=== PATIENT | male | born 1960 | race Caucasian/White ===

== ENCOUNTER 2017-07-10 10:37 | Day surgery (SDC) | payer OTHER ==
[~2017-07-10 10:37] MED LIST: RINGER'S SOLUTION,LACTATED 1,000 ML IV PRN
[2017-07-10] MEDS ORDERED: RINGER'S SOLUTION,LACTATED 1,000 ML IV ONE (11:11)
[2017-07-10] MEDS ORDERED: RINGER'S SOLUTION,LACTATED 1,000 ML IV PRN (12:20)
--- NOTE | 2017-07-10 15:56 | OR ---
Operative Report - Dictated Report Narrative: OPERATIVE REPORT DATE OF OPERATION: 07/10/2017 PREOPERATIVE DIAGNOSIS: Anal skin tag. No prior dedicated colon studies. POSTOPERATIVE DIAGNOSIS: Anal skin tag. Sharp angulation of the colon at 80 cm preventing proximal direct exam. OPERATION: Colonoscopy to 80 cm. Cauterization of anal skin tag SURGEON: Carole Mccauley MD ANESTHESIA: RAJWINDER Huang CRNA INDICATIONS FOR PROCEDURE: The patient is a 56-year-old male referred by Dr. Ortiz. He has had no previous dedicated colon studies. There is no family history of colon cancer. He is asymptomatic. He does have an irritated perianal skin tag. FINDINGS: 2 mm benign appearing perianal skin tag. Sharp angulation of the colon at 80 cm precluding direct proximal exam. NARRATIVE OF PROCEDURE: The patient was identified in the holding area, and prior to the administration of anesthetic, a multidisciplinary timeout was observed. With the patient in the left lateral position and after the administration of intravenous sedation, the perineum was inspected. There was no evidence of pilonidal disease or skin breakdown. The external appearance of the anus was normal with exception of a 2 mm benign appearing skin tag. This was cauterized and destroyed. The spot appeared complete and hemostatic.. Sphincter tone was good. The flexible fiberoptic colonoscope was inserted into the rectum which was insufflated with air. The rectal mucosa and submucosal vascular pattern appeared normal, the prep was seen to be complete. The scope was advanced through the sigmoid colon, where at 80 cm there was a sharp angulation. Despite the use of standard reduction maneuvers and gentle external manual compression on the abdomen the scope could not be advanced around this corner under direct vision. The scope was withdrawn and readvanced on 3 separate occasions with similar result. The scope was then slowly withdrawn in a circular fashion so that all aspects of colonic mucosa distal to 80 cm were inspected. The colon was normal in caliber. The haustral architecture appeared well preserved throughout with no evidence of external compression. The mucosa and submucosal vascular pattern appeared normal, specifically there was no gross evidence to suggest colitis or inflammatory bowel disease and no AV malformations were seen. No diverticulosis was demonstrated. No polyps were encountered. The scope was gradually withdrawn to the level of the rectum. As much insufflated air as possible was removed. The scope was withdrawn from the patient and the procedure terminated. The patient tolerated the anesthetic and procedure well without complication and was transferred back to the ambulatory surgery area awake and in stable condition. I explained that the exam was incomplete and a completion barium enema would be necessary. The patient had a single contrast barium enema which revealed tortuosity but no gross lesions. The images were reviewed with him prior to discharge. The patient remained stable throughout a period of postoperative observation. He denied abdominal discomfort, was able to tolerate by mouth intake, and was up without assistance. I shared the operative findings with the patient and he was given copies of the photographs which appear in the medical record. He was discharged home with instructions not to engage in hazardous activity today, but may resume normal activity tomorrow, and advance diet as tolerated. He is to continue those medications as listed in the history and physical exam. RECOMMENDATION: Colon surveillance in 5-10 years depending upon findings and symptoms. (He should preferentially have a contrast study initially due to anatomy) Reviewed and electronically signed
[2017-07-10 16:47] VITALS: BP 132/78
== END 2017-07-10 10:38 | disposition home or self-care (01) ==
LOC: AMB 10:37
PROVIDERS: ATTEND Surgery
PROC: 0DBQXZZ Excision of Anus, External Approach (ICD-10-PCS; 2017-07-10)
PROC: 0DJD8ZZ Inspection of Lower Intestinal Tract, Via Natural or Artificial Opening Endoscopic (ICD-10-PCS; principal; 2017-07-10 12:00)
DX: Z12.11 Encounter for screening for malignant neoplasm of colon (principal); K64.4 Residual hemorrhoidal skin tags; F17.200 Nicotine dependence, unspecified, uncomplicated; Z68.22 Body mass index [BMI] 22.0-22.9, adult
CPT/HCPCS: 46220; 74270; G0121